=== PATIENT | male | born 1995 | race Asian ===

== ENCOUNTER 2022-12-25 08:47 | Emergency (ER) | payer MEDICAID ==
[~2022-12-25] VITALS: Ht 182.9 cm; Wt 68.2 kg
[2022-12-25 08:53] VITALS: TEMP 98
[2022-12-25] MEDS ORDERED: IBUP-1554 PO (10:47)
[2022-12-25 10:54] VITALS: BP 120/64; PULSE 55; RESP 16
== END 2022-12-25 10:54 | disposition home or self-care (01) ==
LOC: EMS 08:48
DX: S63.501A Unspecified sprain of right wrist, initial encounter (principal); X58.XXXA Exposure to other specified factors, initial encounter; Y93.89 Activity, other specified; Y92.89 Other specified places as the place of occurrence of the external cause; Y99.8 Other external cause status
CPT/HCPCS: 99283